=== PATIENT | male | born 1955 | race Caucasian/White ===

== ENCOUNTER 2022-08-16 05:19 | Inpatient (IN) | payer MEDICARE, SELFPAY ==
[2022-08-16] VITALS (18 sets, daily range): BP systolic 82–131; BP diastolic 50–89; PULSE 67–100; RESP 18–20; TEMP 36.4–37.9; O2SAT 97–100; BMI 25.7
[2022-08-16] MEDS: Lactated Ringers 1,000 ML 15 ML IV (06:16)
--- NOTE | 2022-08-16 07:16 | OP.PCM_ITS ---
Problems Associated Problem List Diagnoses (1) Lumbar stenosis: Report of Operation Date of Procedure: 08/16/22 Pre-Operative Diagnosis: 1. Lumbar stenosis, L3-4, L4-5 with spondylosis 2. Lumbar degenerative disc disease L3-4, L4-5 Post-Operative Diagnosis: 1. Lumbar stenosis, L3-4, L4-5 with spondylosis 2. Lumbar degenerative disc disease L3-4, L4-5 Surgery/Procedure Performed:: 1. L3-4 posterior lumbar interbody fusion 2. L4-5 posterior lumbar interbody fusion 3. Insertion of intervertebral biomechanical device x2 4. Structural allograft for spinal fusion 5. L3 bilateral laminectomies, foraminotomies, facetectomies, decompression of bilateral nerve roots 6. L4 bilateral laminectomies, foraminotomies, facetectomies, decompression of bilateral nerve roots 7. L5 bilateral laminectomies, foraminotomies, facetectomies, decompression of bilateral nerve roots 8. L3-4 posterior lateral fusion 9. L4-5 posterior lateral fusion 10. Pedicle screw fixation 11. Local autograft for spinal fusion 12. Neuro monitoring bilateral upper and bilateral lower extremities Description of Surgical Findings:: The patient is a 67-year-old male with intractable back and leg pain. Image studies confirm the above diagnoses. He has failed conservative treatment to include medications physical therapy and injections. The patient opted for operative intervention understanding the risk to include but not limited to infection, bleeding, damage to nerves arteries and veins, possibility of spinal fluid leak, nonunion, hardware failure, continued pain, need for further surgery, deep vein thrombosis, pulmonary embolism, heart attack, risk of stroke or . The patient was identified in the preoperative holding area. There he received preoperative IV antibiotics Ancef and was then transferred to the operative suite. Once in the operative suite after general endotracheal anesthesia was established the patient was positioned prone on the [place] operating table. All bony prominences were padded accordingly. The lumbar spine was prepped and draped in a sterile fashion. Bear hugger's were not turned on until the drapes were placed and sealed with Ioban. A midline incision was made and taken down to the lumbodorsal fascia. The fascia was divided and subperiosteal dissection was taken down to the level of the transverse processes of L3, L4, and L5 bila terally. A bone scalpel was used to make cuts in the lamina of L3, L4, and then a series of Kerrisons and rongeurs were used removing the spinous process and lamina at L3, and L4 and partially at L5. Then facetectomies of greater than 50% were performed as well as foraminotomies decompressing the bilateral nerve roots. Given the severity of the stenosis I needed to perform wide bilateral laminectomies and near complete facetectomies in order to decompress the neural elements thus creating instability necessitating the fusion. I then proceeded with placement of the interbody's. The nerve roots and dura were identified and retracted medially. A 15 blade scalpel was used to make an annulotomy at L3-4 and L4-5 on the right side. Endplate elevators, curettes, and pituitaries were utilized to remove disc material. Endplates were prepared with a rasp. An appropriate sized intervertebral peek cage device measuring 11 mm was packed with morselized cancellous allograft and impacted into position completing the posterior lumbar interbody fusion at the L3-4 level. An appropriate sized intervertebral peek cage device measuring 10 mm was packed with morselized cancellous allograft and impacted into position at the L4-5 level thus completing the L3-4 and L4-5 posterior lumbar interbody fusions. I then proceeded with pedicle screw fixation. Starting points were found at the junction of the superior articular process and transverse processes at L3, L4, and L5 bilaterally. A power bur was used for the starting points. Pedicle probes were placed bilaterally and then 6.5 x 55 mm screws were placed bilaterally at L3, L4, and 6.5 x 50 mm L5. Connecting rods were placed and secured with set screws. I then proceeded with the posterior lateral fusion. This was accomplished by decorticating the transverse processes bilaterally at L3, L4, and L5. This decorticated bone was then bridged with local autograft from the decompression as well as morselized cancellous allograft therefore completing the posterior lateral fusion at L3-4 and L4-5. The incision was then thoroughly irrigated. Tisseel was placed over the dura as a hemostatic agent. A deep drain was placed. The fascia was closed with #1 Vicryl, subcutaneous with 2-0 Vicryl and skin with 2-0 nylon. A sterile dressing was applied with 4 x 4's ABD and tape. Sponge instrument and needle counts were correct at the end of the case. Neurophysiologic monitoring was maintained at baseline throughout the duration of the case. The patient was extubated and taken to the PACU without incident. Rick Kelley PA-C was present throughout the duration of the case and necessary for critical parts of the case including retraction and closure. Surgeon: Juan Landin search strategist: Jovanny Kelley Type of Anesthesia: General Drains: Hemovac Estimated Blood Loss (mL): 400 cc Fluids Replaced: 2300 cc Grafts/Implants Used: Unified spine, talos, vitae os, DBM, allofuse Complications None Admit VTE Documentation VTE Present on Admission: No
--- NOTE | 2022-08-16 07:16 | PCM.PN.ORT ---
Subjective Subjective The patient was seen postoperatively in the PACU. He is lying in bed resting comfortably. His pain is controlled. He denies any acute numbness tingling weakness Objective Data Objective Data Vital Signs: Vital Signs Temp Pulse Resp BP Pulse Ox O2 Del Method 97.9 F 100 18 131/89 H 100 Room Air 08/16/22 06:02 08/16/22 06:02 08/16/22 06:02 08/16/22 06:02 08/16/22 06:02 08/16/22 06:02 Oxygen Delivery Method Room Air Weight: 195 lb Body Mass Index (BMI) 25.7 Physical Exam Const alert, oriented x3 and no apparent distress General Appearance: cooperative, comfortable and well kempt HEENT normocephalic and head/scalp atraumatic Eyes EOMs intact bilaterally and conjunctivae normal Neck full ROM General: normal visual inspection Chest inspection of chest normal and palpation of chest normal Resp normal respiratory effort and normal air movement Cardio regular rate, regular rhythm and peripheral pulses 2+ throughout GI soft to palpation, non-tender and non-distended Back/Spine Back/Spine Narrative: Dressing clean dry and intact. Drain in place and functioning with small amount of serosanguineous fluid Cervical Spine: cervical ROM normal Thoracic Spine / Upper Back: normal to inspection Lumbar Spine / Lower Back: normal to inspection Extremity normal to inspection, full ROM, normal capillary refill, no clubbing, cyanosis or edema and no calf tenderness Peripheral Pulses: Yes pulses 2+ throughout Skin no rashes or lesions noted General Skin Exam: no breakdown Neuro oriented x3, CN's II-XII intact bilaterally, moves all extremities and deep tendon reflexes 2+ bilaterally Motor Exam: muscle tone normal throughout Assessment & Plan Assessment/Plan (1) Lumbar stenosis: PLAN: Okay to admit to floor See orders Pain control and mobilization as tolerated Back brace on at all times Continue antibiotics while drain in place Discharge planning, likely home tomorrow
--- NOTE | 2022-08-16 07:16 | PCM.DC.SUM ---
Providers Date of Admission: 08/16/22 Primary Care Physician: Dr. Saul Vega MD Reason For Visit: L3-4,L4-5,POSTERIOR LUMBAR INTERBODY FUSION..... Medications at Discharge Home Medications gabapentin 100 mg capsule 100 mg PO TID NERVE PAIN 08/13/22 linaclotide 145 mcg capsule (Linzess) 145 mcg PO DAILY IBS 08/13/22 lisinopril 5 mg tablet 5 mg PO DAILY BP 08/13/22 hydrocodone-acetaminophen 5-325mg 5mg-325mg 1 tab PO Q6H 7 days #28 tabs 08/16/22 Hospital Course Operations - (L3-4, L4-5 posterior lumbar interbody fusion, decompression, posterior spinal fusion with instrumentation, use of allograft) Summary of Care Provided Minutes Spent on Discharge: 15 Hospital Course: The patient is a 67-year-old male who underwent L3-4, L4-5 posterior lumbar interbody fusion, decompression, posterior spinal fusion with instrumentation, use of allograft on 08/16/2022. He was subsequently admitted. The hospitalist was consulted for medical management. He progressed well. His pain was controlled and he was mobilizing well. His drain was pulled on postoperative day 2. No significant medical issues were reported and he was subsequently discharged home on 08/18/22 to follow-up with Dr. Landin in 3 weeks Physical Exam Const alert, oriented x3 and no apparent distress General Appearance: cooperative, comfortable and well kempt HEENT normocephalic and head/scalp atraumatic Eyes EOMs intact bilaterally and conjunctivae normal Neck full ROM General: normal visual inspection Chest inspection of chest normal and palpation of chest normal Resp normal respiratory effort and normal air movement Effort and Inspection: able to speak in complete sentences Cardio regular rate and peripheral pulses 2+ throughout GI soft to palpation, non-tender and non-distended Back/Spine Back/Spine Narrative: Dressing clean dry and intact. Incision well approximated with interrupted sutures in place. No tenderness erythema drainage or fluctuance Cervical Spine: cervical ROM normal Thoracic Spine / Upper Back: normal to inspection Lumbar Spine / Lower Back: normal to inspection Extremity normal to inspection, full ROM, normal capillary refill, no clubbing, cyanosis or edema and no calf tenderness Skin no rashes or lesions noted General Skin Exam: no breakdown Neuro oriented x3, CN's II-XII intact bilaterally, moves all extremities, no focal motor deficits, no sensory deficits noted and deep tendon reflexes 2+ bilaterally Motor Exam: strength 5/5 throughout and muscle tone normal throughout Weight / BMI Weight Weight: 195 lb Body Mass Index (BMI) 25.7 ABG / Lab / Microbiology Data Result Diagrams: 08/17/22 05:59 08/17/22 05:59 D/C Instructions Discharge Diet: No restrictions Additional Activity Instructions: No repetitive bending twisting or lifting greater than 5 pounds Call your doctor if your incision/area has: Continuous Slow Oozing, Sudden Increased Bleeding, Increased Pain/ Swelling, Increased Redness, Foul Smelling Discharge and Swelling at the incision site Call your doctor if you observe: Fever of 101 or Higher, Coldness, Increased Pain, Numbness or Tingling, Change in Color, Inability to urinate, Inability to have a bowel movement, Using more than 1 pad per hour, Shortness of breath, Dizziness, Fainting spells, Swelling in the ankles, Chest pain, Prolonged hiccupping, Increased palpitations (irregular heartbeat), Calf discomfort and Uncontrolled pain Cleanse incision/area with: Do not get Incision Wet and Keep Dressing Clean & Dry Additional Dressing/Incision Instructions: Change dressing daily with iodine gauze and tape. [place] dressing to shower Additional Instructions: 1. During your procedure, you received sedation through your IV. Please follow these instructions for the next 24 hours: Do not drive a motor vehicle, do not drink any alcoholic beverages, and do not sign any legal documents or make personal or business decisions. A responsible adult should stay with you at least 6 hours after the procedure. 2. Keep your surgical site/incision clean and the dressing dry and intact. Change dressing daily. you may use an ice pack at the surgical site to reduce any swelling or discomfort. 3. Monitor the incision site for any signs or symptoms of infection. Watch for redness, excessive swelling or drainage, or continued pain at the incision site after 3 days. Contact your physician immediately for a fever, chills or a temperature of 101.5? F or greater. 4. Take your medication exactly as prescribed by your physician. Do not attempt to wean yourself off any of your medications even though your pain is improving. This process needs to be carefully monitored by your doctor. Take any antibiotics prescribed exactly as directed and until they are gone. 5. Avoid stretching, bending, pulling, twisting or any sudden movements. Do not bend or twist at the waist. Wear back brace at all times when out of bed 6. No lifting greater than 5 pounds. 7. Do not operate a motor vehicle, equipment or a power tool while taking pain medication 9. Please contact our office if you are even scheduled for a CT scan or an MRI. 10. Please call us if you have any questions, problems or concerns. Please Follow Up With: Juan Landin DO When: 3 weeks Meaningful Use Info Meaningful Use Diagnoses (Choose all that apply): None applicable Discharge Plan Admission Admit Date/Time: 08/16/22 05:19 Attending Provider: Juan Landin Primary Care Provider: Saul Vega Consulting Providers: Cameron Bass ; Bart Meza Discharge Orders/Prescriptions Prescriptions: New hydrocodone-acetaminophen 5-325 mg tablet 1 tab PO Q6H 7 Days Qty: 28 0RF Continued lisinopril 5 mg Tablet 5 mg PO DAILY gabapentin 100 mg Capsule 100 mg PO TID Linzess 145 mcg Capsule 145 mcg PO DAILY Discontinued oxycodone-acetaminophen [Percocet] 5-325 mg Tablet 1 tab PO Q6H PRN (Reason: Pain) Referrals / Follow Up: Juan Landin DO [Med Staff - Active Staff] - Saul Vega MD [Primary Care Provider] - Disposition Disposition (needs filled in before D/C Order can be placed): Home, Self Care
[2022-08-16] MEDS: Cefazolin 2 GM in 0.9% Normal Saline 100 ML IV (08:15)
--- NOTE | 2022-08-16 08:15 | RAD_ITS ---
STUDY: X-RAY - LUMBAR SPINE REASON FOR EXAM: Male, 67 years old. LUMBAR 3-4, LUMBAR 4-5, POSTERIOR FUSION, DECOMPRESSION TECHNIQUE: 5 view(s) of the lumbar spine were obtained. COMPARISON: None FINDINGS: Initial image demonstrates marker projecting at the posterior aspect of the spinal canal at the L3-4 level. Second image demonstrates pedicle screws at L4-L5 and S1 with interbody fusion devices. Third image demonstrates bilateral pedicle screws at the L4, L5 and S1 level. Final image demonstrates bridging bars standing vertically across the pedicle screws. RAD/Lumbar Spine 2 or 3 Views IMPRESSION: Intraoperative images demonstrating bilateral pedicle screw fusion L4-S1. Electronically Signed: Bart Pretty MD, KEL[place] at 14:07 EDT ,
[2022-08-16] MEDS: THROMBIN (RECOMBINANT) 20,000 UNIT VIAL 20000 UNIT TOPICAL (09:57)
[2022-08-16] MEDS: Heparin 10,000 UNITS/10 ML Vial 10000 UNITS (09:58)
--- NOTE | 2022-08-16 13:11 | SUR.PHASEI ---
both of patients feet and hands are very cold and pale, entire right arm cold. cap refill about 4 seconds. able to move fingers and toes. patient has red area across forehead above eyebrows-blancheable, red area middle of chest from midpoint to the right-blancheable, quarter sized anabel on right cheek slightly firm but blancheable.
--- NOTE | 2022-08-16 16:13 | PN.HOSP_ITS ---
Subjective Subjective Consult requested by Dr. Landin for post-op medical mgmt. Feels well post-operatively. Some back discomfort. Objective Data Objective Data Vital Signs: Vital Signs Temp Pulse Resp BP Pulse Ox O2 Del Method O2 Flow Rate 36.4 C L 80 18 92/58 L 98 Room Air 6 08/16/22 16:07 08/16/22 16:07 08/16/22 16:07 08/16/22 16:07 08/16/22 16:07 08/16/22 16:07 08/16/22 13:30 Oxygen Flow Rate (L/min) 6 Oxygen Delivery Method Room Air Weight: 88.451 kg Body Mass Index (BMI) 25.7 Intake & Output: Intake and Output for Last 24 Hours 08/14/22 08/15/22 08/16/22 23:59 23:59 23:59 Intake Total 2110 / 2110 Output Total 255 / 255 Balance 1855 / 1855 Radiography Diagnostic Testing: Radiology Impression Lumbar Spine X-Ray 08/16/22 08:15 IMPRESSION: Intraoperative images demonstrating bilateral pedicle screw fusion L4-S1. Electronically Signed: Bart Pretty MD, [place] at 14:07 EDT Reading Location ID and State: [facility] / [place] Tel , Service support , Physical Exam Const alert and no apparent distress Resp normal respiratory effort, no retractions, no use of accessory muscles and clear to auscultation bilaterally Cardio regular rate, regular rhythm, S1 normal heart sound and S2 normal heart sound GI normal to inspection, nondistended, normoactive bowel sounds, soft to palpation, non-tender and non-distended Extremity normal to inspection Neuro moves all extremities Assessment & Plan Assessment/Plan (1) Hypotension: QUALIFIERS: Hypotension type: unspecified hypotension type Qualified Code(s): I95.9 - Hypotension, unspecified PLAN: SBP down in 80s earlier, since resolved. Monitor for now. DC lisinopril for now. Agree with IVF for now (2) Lumbar stenosis: PLAN: s/p L3-4 posterior lumbar interbody fusion, L4-5 posterior lumbar interbody fusion, Insertion of intervertebral biomechanical device x2, Structural allograft for spinal fusion, L3-5 bilateral laminectomies, foraminotomies, facetectomies, decompression of bilateral nerve roots; L3-4 posterior lateral fusion; L4-5 posterior lateral fusion; Pedicle screw fixation; Local autograft for spinal fusion Mgmt per orthopaedics. PLAN: Plan Chronic conditions: * Chronic constipation continue linzess * HTN: lisinopril on hold for now given soft BP. If improves, can likely resume later or upon discharge. VTE prophylaxis: SCDs Thank you for the consult. The hospital service will follow along while patient is still having active medical issues. Charges/Coding Visit Charges Inpatient E&M: 86511 Subs Hosp L2
[2022-08-16] MEDS: Acetaminophen 500 MG Tablet 1000 MG PO ×2 (16:45→22:55)
[2022-08-16] MEDS: Cefazolin 1 GM/50 ML BAG IV ×2 (16:45→22:55)
[2022-08-16] MEDS: Lactated Ringers 1,000 ML 100 ML IV (16:45)
[2022-08-16] MEDS: Gabapentin 100 MG Capsule PO ×2 (16:45→22:55)
[2022-08-17] VITALS (9 sets, daily range): BP systolic 110–132; BP diastolic 66–86; PULSE 74–117; RESP 14–18; TEMP 36.6–37.4; O2SAT 97–100
[2022-08-17] MEDS: Gabapentin 100 MG Capsule PO ×3 (04:58→21:45)
[2022-08-17] MEDS: Acetaminophen 500 MG Tablet 1000 MG PO ×3 (04:58→21:45)
[2022-08-17 06:15] LABS: Absolute Lymphocyte Count 2.19 X10^3/uL (0.83-4.51); Absolute Neutrophil Count 11.9 X10^3/uL (2.0-7.7); Basophil# 0.02 X10^3/uL; Basophil% 0.1 % (0-1); Eosinophil# 0.01 X10^3/uL; Eosinophils% 0.1 % (0-5); Hematocrit 32.5 % (40-54); Hemoglobin 11.3 g/dL (13.0-16.5); Lymphocyte # 2.19 X10^3/ul (0.83-4.51); Lymphocyte % 14.2 % (19-41); Mean Corp Hgb Conc 34.8 g/dL (32-36); Mean Corpuscular Hgb 31.3 pg (27.0-32.0); Mean Platelet Vol. 9.7 fl (6.2-12.0); Monocyte# 1.31 X10^3/uL; Monocyte% 8.5 % (0-10); NRBC Flagged by Analyzer 0 % (0-5); Neutrophil # 11.85 X10^3/uL (2.7-7.7); Neutrophil % 76.7 % (47-70); Platelet Count 193 K/mm3 (150-450); RBC Distribution Width CV 12.9 % (11.6-14.6); RBC Distribution Width SD 42.2 fl (35.1-43.9); Red Blood Count 3.61 M/mm3 (4.6-6.2); White Blood Count 15.4 K/mm3 (4.4-11.0)
[2022-08-17 07:13] LABS: Anion Gap 7 (5-15); BUN 13 mg/dL (7-18); BUN/Creat Ratio 14.4 RATIO (10-20); Calcium,Total 8.9 mg/dL (8.5-10.1); Chloride 103 mmol/L (98-107); EST Glomerular Filtration Rate 90 mL/min (>60); Est Glom Filt Rate - Afr Amer 108 mL/min (>60); Estimated Creatinine Clearance 91.24 ml/min; Glucose 108 mg/dL (74-106); Sodium Level 136 mmol/L (136-145)
--- NOTE | 2022-08-17 07:42 | PCM.PN.ORT ---
Subjective Subjective The patient was seen and examined postoperative day 1. He is lying in bed resting comfortably. His pain is well controlled. He has been out of bed with assistance without difficulty. He complains of some mild tingling in the soles of the bilateral feet. He denies any other acute numbness tingling weakness or changes in bowel or bladder function. His [place] has been removed but he has not yet urinated. He is passing gas. His drain output has been 350 cc overnight. He is complaining of some occasional mild cramping in the bilateral legs. This is not present at this time. He did have some episodes of mild asymptomatic hypotension as well. Objective Data Objective Data Vital Signs: Vital Signs Temp Pulse Resp BP Pulse Ox O2 Del Method O2 Flow Rate 98.4 F 80 18 111/66 97 Room Air 6 08/17/22 04:56 08/17/22 04:56 08/17/22 04:56 08/17/22 04:56 08/17/22 04:56 08/17/22 04:56 08/16/22 13:30 Oxygen Flow Rate (L/min) 6 Oxygen Delivery Method Room Air Weight: 195 lb Body Mass Index (BMI) 25.7 Intake & Output: Intake and Output for Last 24 Hours 08/15/22 08/16/22 08/17/22 23:59 23:59 23:59 Intake Total 2468.25 / 2468.25 1000 / 1000 Output Total 2275 / 2275 630 / 630 Balance 193.25 / 193.25 370 / 370 Lab / Micro Data Result Diagrams: 08/17/22 05:59 08/17/22 05:59 Labs: Laboratory Results - last 24 hr 08/17/22 05:59: WBC 15.4 H, RBC 3.61 L, Hgb 11.3 L, Hct 32.5 L, MCV 90.0, MCH 31.3, MCHC 34.8, RDW Std Deviation 42.2, RDW Coeff of [place] 12.9, Plt Count 193, MPV 9.7, Immature Gran % (Auto) 0.400, Neut % (Auto) 76.7 H, Lymph % (Auto) 14.2 L, [place] % (Auto) 8.5, Eos % (Auto) 0.1, Baso % (Auto) 0.1, Absolute Neuts (auto) 11.9 H, Absolute Lymphs (auto) 2.19, Nucleated RBC % 0 08/17/22 05:59: Sodium 136, Potassium 4.0, Chloride 103, Carbon Dioxide 26.0, Anion Gap 7, BUN 13, Creatinine 0.90, Estim Creat Clear Calc 91.24, Est GFR (MDRD) Af Amer 108, Est GFR (MDRD) Non-Af 90, BUN/Creatinine Ratio 14.4, Glucose 108 H, Calcium 8.9 Radiography Diagnostic Testing: Radiology Impression Lumbar Spine X-Ray 08/16/22 08:15 IMPRESSION: Intraoperative images demonstrating bilateral pedicle screw fusion L4-S1. Electronically Signed: Bart Pretty MD, [place] at 14:07 EDT Reading Location ID and State: [facility] / [place] Tel , Service support , Physical Exam Const alert, oriented x3 and no apparent distress General Appearance: cooperative, comfortable and well kempt HEENT normocephalic and head/scalp atraumatic Eyes EOMs intact bilaterally and conjunctivae normal Neck full ROM General: normal visual inspection Chest inspection of chest normal and palpation of chest normal Resp normal respiratory effort and normal air movement Effort and Inspection: able to speak in complete sentences Cardio regular rate and peripheral pulses 2+ throughout GI soft to palpation, non-tender and non-distended Back/Spine Back/Spine Narrative: Dressing clean dry and intact. Drain in place and functioning with small amount of serosanguineous fluid present Cervical Spine: cervical ROM normal Thoracic Spine / Upper Back: normal to inspection Lumbar Spine / Lower Back: normal to inspection Extremity normal to inspection, full ROM, normal capillary refill, no clubbing, cyanosis or edema and no calf tenderness Skin no rashes or lesions noted General Skin Exam: no breakdown Neuro oriented x3, CN's II-XII intact bilaterally, moves all extremities, no focal motor deficits, no sensory deficits noted and deep tendon reflexes 2+ bilaterally Motor Exam: strength 5/5 throughout and muscle tone normal throughout Assessment & Plan Assessment/Plan (1) Lumbar stenosis: PLAN: Plan I had a lengthy discussion with the patient. He is doing very well postop. We will have physical therapy see him today. Continue pain control and mobilization as tolerated. Patient wishes to stay another day. I left the drain in. Continue antibiotics while drain in place. Bladder scan and if greater than 400 cc reanchor [place] and start on Flomax and urachol. I will see him tomorrow morning and pull the drain. Likely discharge home tomorrow.
[2022-08-17] MEDS: Ensure Surgery 237 ML LIQUID PO (09:26)
--- NOTE | 2022-08-17 09:45 | CASEMGMT ---
RN JUAN COAL HAULER CM to room to meet with patient for initial transition planning/care coordination assessment. SARIKA MARTINEZ introduced self and role at [facility]. Pt voices understanding and consents to assessment at this time. Pt sitting up in recliner chair in no distress at this time. Pt is A/O at this time and answers all questions appropriately. Care providers, pharmacy, and demographics verified/updated at this time. PCP: Dr Saul Vega Specialists: Dr Landin-yasmeen Preferred Pharmacy: [facility]. Insurance:[employer] Prescription Benefit: Yes Living Will/HPOA: Pt does not currently have LW/HCPOA and declines info at this time. Pt made aware that he can contact [facility] as an out-pt and make appt in the future if he decides he would like to talk with someone about this or would like to utilize [facility] social work for advanced directive completion. Given [employer] card with information and contact number. Pt expresses understanding. LNOK: Living Arrangements: Lives w/ in one-story home w/ramp entrance. Pt states he is independent w/most ADL's-- assists when needed. does most home mgmt tasks. Pt manages his own medications and appts. Transportation: Pt and both drive. DME: States has the following DME: shower chair, cane, walker, W/C Pt states no need for further DME at this time. HHC/SNF: No hx of either. Pt wishes to return home and states has no concerns with going home at time of discharge. CM to follow for any discharge planning/needs. Pt voices no concerns/needs at this time. Advised pt to ask for CM if any questions/concerns/needs arise. Voices understanding. PLAN: Home w/spousal support and discharge plans in place. Robb SOLIS RN, CM
[2022-08-17] MEDS: oxyCODONE 5 MG Tablet PO (12:05)
--- NOTE | 2022-08-17 12:20 | PCM.PN.HOSP ---
Subjective Subjective Patient was seen and examined today, he has no complaints of any shortness of breath, fevers, or chills. He does complain of some postop lower back pain. Patient's lisinopril is currently on hold due to some hypotension yesterday. Objective Data Objective Data Vital Signs: Vital Signs Temp Pulse Resp BP Pulse Ox O2 Del Method O2 Flow Rate 97.9 F 108 H 14 110/73 99 Room Air 6 08/17/22 09:26 08/17/22 09:26 08/17/22 09:26 08/17/22 09:26 08/17/22 09:26 08/17/22 09:26 08/16/22 13:30 Oxygen Flow Rate (L/min) 6 Oxygen Delivery Method Room Air Weight: 88.451 kg Body Mass Index (BMI) 25.7 Intake & Output: Intake and Output for Last 24 Hours 08/15/22 08/16/22 08/17/22 23:59 23:59 23:59 Intake Total 2468.25 / 2468.25 1000 / 1000 Output Total 2275 / 2275 730 / 730 Balance 193.25 / 193.25 270 / 270 Lab / Micro Data Result Diagrams: 08/17/22 05:59 08/17/22 05:59 Labs: Laboratory Results - last 24 hr 08/17/22 05:59: WBC 15.4 H, RBC 3.61 L, Hgb 11.3 L, Hct 32.5 L, MCV 90.0, MCH 31.3, MCHC 34.8, RDW Std Deviation 42.2, RDW Coeff of Linda 12.9, Plt Count 193, MPV 9.7, Immature Gran % (Auto) 0.400, Neut % (Auto) 76.7 H, Lymph % (Auto) 14.2 L, [place] % (Auto) 8.5, Eos % (Auto) 0.1, Baso % (Auto) 0.1, Absolute Neuts (auto) 11.9 H, Absolute Lymphs (auto) 2.19, Nucleated RBC % 0 08/17/22 05:59: Sodium 136, Potassium 4.0, Chloride 103, Carbon Dioxide 26.0, Anion Gap 7, BUN 13, Creatinine 0.90, Estim Creat Clear Calc 91.24, Est GFR (MDRD) Af Amer 108, Est GFR (MDRD) Non-Af 90, BUN/Creatinine Ratio 14.4, Glucose 108 H, Calcium 8.9 Radiography Diagnostic Testing: Radiology Impression Lumbar Spine X-Ray 08/16/22 08:15 IMPRESSION: Intraoperative images demonstrating bilateral pedicle screw fusion L4-S1. Electronically Signed: Bart Pretty MD, [place] at 14:07 EDT Reading Location ID and State: [facility] / [place] Tel , Service support , Physical Exam Const alert, oriented x3, no apparent distress and healthy appearing General Appearance: cooperative, well kempt and well developed Orientation / Consciousness: awake, oriented to person, oriented to place and oriented to time HEENT normocephalic, head/scalp atraumatic and moist oral mucous membranes Eyes PERRL, EOMs intact bilaterally and conjunctivae normal Neck supple, no JVD, thyroid normal and no carotid bruits General: trachea midline Resp normal respiratory effort, no retractions, no use of accessory muscles and clear to auscultation bilaterally Auscultation: Negative for rales, rhonchi or wheezes Cardio regular rate, regular rhythm, S1 normal heart sound, S2 normal heart sound, no murmurs, no rub and no gallops GI normal to inspection, nondistended, normoactive bowel sounds, soft to palpation, non-tender and non-distended Extremity no clubbing, cyanosis or edema Neuro oriented x3, CN's II-XII intact bilaterally, no focal motor deficits and no sensory deficits noted Sensorium / Orientation: awake and alert Speech: speech normal Psych affect normal Assessment & Plan Assessment/Plan (1) Lumbar stenosis: PLAN: Plan 1. Essential hypertension-patient's blood pressure medications are being held at this time due to a low systolic blood pressure since yesterday. Patient's systolic blood pressure today is 110 however. #2 lumbar stenosis with spondylosis-postop day #1 L3-L5 fusion, PT and OT are seeing patient, management per spinal surgery #3 leukocytosis-probably reactive in nature, patient's white blood cell count today was 15.4. I do not believe the patient needs a repeat CBC tomorrow, it could be ordered at the discretion of spinal surgery however. Charges/Coding Visit Charges Inpatient E&M: 42176 Subs Hosp L2
[2022-08-18 04:12] VITALS: BP 127/76; PULSE 98; RESP 18; TEMP 36.9; O2SAT 95
[2022-08-18 04:15] VITALS: BP 127/76; PULSE 98; RESP 18; TEMP 36.9; O2SAT 95
[2022-08-18] MEDS: Gabapentin 100 MG Capsule PO (05:37)
[2022-08-18] MEDS: Acetaminophen 500 MG Tablet 1000 MG PO (05:37)
[2022-08-18 10:00] VITALS: BP 123/74; PULSE 97; RESP 16; TEMP 36.4; O2SAT 96
[2022-08-18 10:15] VITALS: BP 123/72; PULSE 96; RESP 16; TEMP 36.6; O2SAT 96
[2022-08-18] MEDS: oxyCODONE 5 MG Tablet PO (11:39)
== END 2022-08-18 12:24 | disposition home or self-care (01) | DRG 460 ==
LOC: ACINP 07:49 → MS3 08-17 06:49
PROVIDERS: Admitting Provider Orthopaedic Surgery; PCP Family Medicine; Referring Provider Orthopaedic Surgery; Visit Provider Orthopaedic Surgery
PROC: 0SG10AJ Fusion of 2 or more Lumbar Vertebral Joints with Interbody Fusion Device, Posterior Approach, Anterior Column, Open Approach (ICD-10-PCS; CPT 22630; principal; 2022-08-16 07:00)
DX: M48.061 Spinal stenosis, lumbar region without neurogenic claudication (principal); E78.00 Pure hypercholesterolemia, unspecified; I95.9 Hypotension, unspecified; I10 Essential (primary) hypertension; M47.816 Spondylosis without myelopathy or radiculopathy, lumbar region; M51.36 Other intervertebral disc degeneration, lumbar region; K59.09 Other constipation; Z79.899 Other long term (current) drug therapy; Z98.1 Arthrodesis status; Z87.891 Personal history of nicotine dependence
CPT/HCPCS: 36415; 72100; 76000; 80048; 85025; 97162; 97530; 99251; C1713; J7120; A4216; G0463; J2405

== ENCOUNTER → 2023-08-01 | Outpatient (CLI) | payer MEDICARE, SELFPAY ==
[2023-08-01 12:05] LABS: Basophil# 0.06 X10^3/uL; Basophil% 0.7 % (0-1); Eosinophil# 0.05 X10^3/uL; Eosinophils% 0.6 % (0-5); Hematocrit 47.3 % (40-54); Hemoglobin 15.3 g/dL (13.0-16.5); Lymphocyte % 19.3 % (19-41); Mean Corp Hgb Conc 32.3 g/dL (32-36); Mean Corpuscular Volume 89.6 fL (80-94); Mean Platelet Vol. 10.3 fl (6.2-12.0); Monocyte# 0.57 X10^3/uL; Monocyte% 6.9 % (0-10); NRBC Flagged by Analyzer 0 % (0-5); Neutrophil # 5.97 X10^3/uL (2.7-7.7); Neutrophil % 72.1 % (47-70); Platelet Count 280 K/mm3 (150-450); RBC Distribution Width CV 12.7 % (11.6-14.6); RBC Distribution Width SD 41.1 fl (35.1-43.9); Red Blood Count 5.28 M/mm3 (4.6-6.2); White Blood Count 8.3 K/mm3 (4.4-11.0)
[2023-08-01 12:40] LABS: ALB/GLOB Ratio 0.9 RATIO (0.9-2.4); AST(SGOT) 14 U/L (15-37); Alanine Aminotransfer ALT/SGPT 13 U/L (16-61); Albumin, Serum 4.1 g/dL (3.2-5.0); Alkaline Phosphatase 101 U/L (45-117); Anion Gap 3 (5-15); BUN 11 mg/dL (7-18); BUN/Creat Ratio 10.7 RATIO (10-20); Calcium,Total 9.5 mg/dL (8.5-10.1); Chloride 102 mmol/L (98-107); Creatinine, Serum 1.03 mg/dL (0.70-1.30); EST Glomerular Filtration Rate 76 mL/min (>60); Est Glom Filt Rate - Afr Amer 93 mL/min (>60); Globulin 4.7 g/dL (2.2-4.2); Glucose 103 mg/dL (74-106); Potassium 3.9 mmol/L (3.5-5.1); Protein, Total 8.8 g/dL (6.4-8.2); Sodium Level 136 mmol/L (136-145)
[2023-08-05 08:07] LABS: Anti-Nuclear Antibody Test Negative (.)
== END | disposition home or self-care (01) ==
LOC: MTLAB 09:45
PROVIDERS: PCP Family Medicine; Referring Provider Physician Assistant; Visit Provider Physician Assistant
DX: L29.8 Other pruritus (principal); L90.5 Scar conditions and fibrosis of skin; L30.9 Dermatitis, unspecified
CPT/HCPCS: 36415; 80053; 85025; 86038

== ENCOUNTER → 2025-06-15 | Outpatient (CLI) | payer MEDICARE, SELFPAY ==
--- NOTE | 2025-06-15 10:43 | MRI_ITS ---
PROCEDURE: SPINE LUMBAR W/WO CONTRAST 06/15/2025 REASON FOR EXAM: LUMBAR RADICULOPATHY TECHNIQUE: SPINE LUMBAR W/WO CONTRAST Multiplanar and multisequence images were obtained without and with intravenous gadolinium-based contrast administration. CONTRAST: Clariscan VOLUME: 20 mL COMPARISON: X-ray lumbar spine 05/23/2025. FINDINGS: Vertebrae: The vertebrae are present Alignment: Normal. Conus Medullaris: Unremarkable. No abnormal enhancement. T12-L1: Facet joints arthropathy. No foraminal or canal stenosis. L1-2: Disc bulge. Overlying disc extrusion with cephalad migration measuring 22 mm craniocaudal dimension, 7 mm anteroposterior dimension and 12.5 mm transverse dimension compresses the cauda equina nerves and causing severe canal stenosis. Facet joints arthropathy. Mild to moderate bilateral foramina stenosis. L2-3: Disc bulge. Facet joint arthropathy with fluid effusion. Facet joint arthropathy. Moderate canal stenosis. Mild bilateral foramina stenosis. L3-4: Status post laminectomies and posterior fusion with metallic hardware. Facet joints arthropathy. Limited evaluation due to susceptibility artifact. No significant foraminal stenosis. L4-5: Status post posterior fusion with metallic hardware. Disc desiccation. Status post posterior fusion and laminectomy. Facet joint arthropathy. Moderate right and mild left foramina stenosis. . L5-S1: Disc bulge. Facet joint arthropathy. Mild bilateral foramina stenosis. No canal stenosis. Sacrum: Unremarkable. Postcontrast images: No abnormal enhancement. MRI/Spine Lumbar W/WO Contrast IMPRESSION: Status post posterior fusion and laminectomy L3-L4 and L4-L5. No abnormal enhancement or acute process. Disc extrusion with cephalad migration at L1-L2 measuring 22 mm craniocaudal di mension, 7 mm anteroposterior dimension and 12.5 mm transverse dimension compresses the cauda equina nerves and causing severe c anal stenosis. Facet joints arthropathy. Mild to moderate bilateral foramina stenosis. Moderate canal stenosis at the adjacent L2-L3 level. Reading Location: [facility]
== END | disposition home or self-care (01) ==
LOC: MRI 10:34
PROVIDERS: PCP Family Medicine; Referring Provider Orthopaedic Surgery Orthopaedic Surgery of the Spine; Visit Provider Orthopaedic Surgery Orthopaedic Surgery of the Spine
DX: M54.16 Radiculopathy, lumbar region (principal); Z98.1 Arthrodesis status
CPT/HCPCS: 72158; A9575; A4216

== ENCOUNTER → 2025-07-13 | Outpatient (CLI) | payer MEDICARE, SELFPAY ==
--- NOTE | 2025-07-13 15:31 | MRI_ITS ---
PROCEDURE: SPINE CERVICAL (ROUTINE) 07/13/2025 REASON FOR EXAM: CERVICAL MYELOPATHY TECHNIQUE: Procedure Code: MRISPC Modality: MR Procedure: SPINE CERVICAL (ROUTINE) Multiplanar and multisequence images were obtained without IV contrast administration. COMPARISON: None FINDINGS: Vertebrae: Cervical vertebral body heights are preserved. Bone marrow signal is unremarkable. Alignment: Normal. No spondylolisthesis. Spinal Cord: Cervical spinal cord is of normal size and signal intensities. Structures at the foramen magnum are unremarkable. C2-3: Mild disc osteophyte complex with mild central stenosis. No foraminal encroachment. C3-4: Uncovertebral spurring due to disc osteophyte complex with ventral ridging accounting for mass effect on the dorsal aspect of the thecal sac and accounting for moderate central stenosis. Uncovertebral spurring with bilateral foraminal encroachment seen. C4-5: Diffuse disc bulge. Ligamentum flavum redundancy. Facet arthropathy. Mild central stenosis. C5-6: Severe central stenosis due to ligamentum flavum hypertrophy diffuse disc bulge and uncovertebral spurring. More focal right foraminal paracentral protrusion accounting for mass effect on the thecal sac and exiting nerve root. C6-7: Moderate-sized right paracentral protrusion indenting the thecal sac and accounting for moderate to severe central stenosis. C7-T1: Central protrusion minimally indenting the thecal sac with mild central stenosis. No foraminal encroachment. 11 mm cystic lesion in the left lobe of the thyroid gland incompletely assessed on this exam. No lymphadenopathy. No soft tissue mass. MRI/Spine Cervical (Routine) IMPRESSION: Severe multilevel degenerative disc disease from C3-C4 through C6-C7 with sever e central stenosis at C5-6. Small right paracentral foraminal protrusion at C5-6 with right foraminal encro achment. Moderate-sized right paracentral protrusion at C6-7 indenting the thecal sac an d causing mass effect on the spinal cord. No evidence of myelomalacia. Reading Location: [facility]
== END | disposition home or self-care (01) ==
LOC: MRI 15:28
PROVIDERS: PCP Family Medicine; Referring Provider Orthopaedic Surgery Orthopaedic Surgery of the Spine; Visit Provider Orthopaedic Surgery Orthopaedic Surgery of the Spine
DX: G95.9 Disease of spinal cord, unspecified (principal)
CPT/HCPCS: 72141